=== PATIENT | male | born 2000 | race Caucasian/White ===

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

== ENCOUNTER 2022-01-19 04:48 | Emergency (ER) | payer MEDICAID ==
[~2022-01-19] VITALS: Ht 172.7 cm; Wt 65.9 kg
[~2022-01-19 04:48] MED LIST changes: +ATARAX 10MG10 MG/TAB PO; +LATUDA60 MG PO; +LEVEMIR100 U/ML SQ; +NOVOLOG 100U100 U/M1 SQ; +NOVOLOG FLEX100 U/ML SQ
[2022-01-19 06:13] VITALS: BP 124/73; PULSE 116; TEMP 98.5
[2022-01-19] MEDS ORDERED: PROAIR HFA0.09 MG/AC IH (06:17)
== END 2022-01-19 06:26 | disposition home or self-care (01) ==
LOC: COL.ER 04:48
DX: R05.9 Cough, unspecified (principal)
CPT/HCPCS: J7120

== ENCOUNTER 2022-04-27 12:25 | Inpatient (IN) | payer MEDICAID ==
[~2022-04-27] VITALS: Ht 172.7 cm; Wt 63.5 kg
[2022-04-27] VITALS (415 sets, daily range): BP systolic 108–117; BP diastolic 61–71; PULSE 76–109; O2SAT 94–100
[~2022-04-27 12:25] MED LIST changes: +PROAIR HFA0.09 MG/AC IH
[2022-04-27 13:28] LABS: BASO % 0.9 % (0.0-2.0); EOS # 0.2 K/mm3 (0.0-0.7); EOS % 3.5 % (0.0-4.0); GRAN # 3.3 K/mm3 (1.4-6.5); GRAN % 71.8 % (42.2-75.2); HEMATOCRIT 42.2 % (36.0-47.0); HEMOGLOBIN 15.1 g/dl (12.5-16.1); LYMPH # 0.9 K/mm3 (1.2-3.4); MEAN CELL VOLUME 98 fl (80.0-95.0); MEAN CORPUSCULAR HEMOGLOBIN 35 pg (26-32); MEAN CORPUSCULAR HGB CONC 36 g/dl (33.0-37.0); MEAN PLATELET VOLUME 9.2 fl (7.4-10.4); MONO # 0.2 K/mm3 (0.1-0.6); MONO % 4.6 % (1.7-9.3); PLATELET COUNT 247 K/mm3 (130-400); RED BLOOD COUNT 4.33 M/mm3 (4.20-5.60); REDCELL DISTRIBUTION WIDTH-CV 11.2 % (11.5-14.5)
[2022-04-27 13:45] LABS: ALANINE AMINOTRANSFERASE 32 U/L (0-55); ALBUMIN 3.9 gm/dL (3.5-5.0); ALKALINE PHOSPHATASE 70 U/L (40-150); ANION GAP 18 mmol/L (7-16); AST,SGOT 30 U/L (5-34); BILIRUBIN,TOTAL 0.8 mg/dL (0.2-1.2); BLOOD UREA NITROGEN 13 mg/dL (9-21); CALCIUM 9.1 mg/dL (8.4-10.2); CARBON DIOXIDE 16 mmol/L (22-29); CHLORIDE 102 mmol/L (98-107); CREATININE, serum 1.03 mg/dL (0.72-1.25); POTASSIUM 4.9 mmol/L (3.5-4.5); SODIUM 136 mmol/L (136-145); TOTAL PROTEIN 6.7 gm/dL (6.2-8.1)
[2022-04-27 13:50] LABS: ACETONE,SERUM SMALL
[2022-04-27 13:58] LABS: GLUCOSE 607 mg/dL (70-99)
[2022-04-27 14:21] LABS: LIPASE 171 U/L (8-78)
[2022-04-27 15:31] LABS: BLOOD UREA NITROGEN 11 mg/dL (9-21); CHLORIDE 109 mmol/L (98-107); CREATININE, serum 0.91 mg/dL (0.72-1.25); GLUCOSE 362 mg/dL (70-99); POTASSIUM 5.1 mmol/L (3.5-4.5); SODIUM 140 mmol/L (136-145)
[2022-04-27 15:32] LABS: ANION GAP 17 mmol/L (7-16); CALCIUM 8.3 mg/dL (8.4-10.2); CARBON DIOXIDE 14 mmol/L (22-29)
[2022-04-27 15:39] LABS: ACETONE,SERUM SMALL
--- NOTE | 2022-04-27 16:45 | NUR ---
PT ARRIVED FROM ED FROM DKA. PT GOES BY "FLORINDA" AND IDENTIFIES FEMALE. PT TRANSFERED TO BED. PT PLACED ON TELE AND VSS. PT'S BG CHECKED. INSULIN DRIP AND IVF STARTED PT ORIENTED TO ROOM AND FLOOR. PT HAS CALL LIGHT AND INSTRUCTED TO CALL WITH ALL NEEDS AND NOT TO GET OUT OF BED. 1700-CLARIFIED WITH REGARDING DIET. STATES OK FOR CARB CONTROLLED DIET EVEN WITH INCREASE IN BG.
[2022-04-27 18:21] LABS: COLLECTION METHOD CLEAN CATCH
[2022-04-27 18:32] LABS: URINE APPEARANCE Clear (CLEAR/HAZY); URINE COLOR Yellow (YELLOW); URINE GLUCOSE 2+ (NEGATIVE); URINE KETONE 3+ (NEGATIVE)
[2022-04-27 18:33] LABS: URINE BLOOD Negative (NEGATIVE); URINE NITRATE Negative (NEGATIVE); URINE PROTEIN(semi-quant) Negative (NEGATIVE); URINE UROBILINOGEN 0.2 E.U/dL (0.2-1.0)
[2022-04-27 18:35] LABS: MUCOUS Present (NOT PRESENT); SQUAMOUS EPITHELIAL None Seen /hpf (0-10); URINE BACTERIA None Seen /hpf (NONE SEEN); URINE RBC None Seen /hpf (0-2)
[2022-04-27 19:44] LABS: CALCIUM 8.7 mg/dL (8.4-10.2)
[2022-04-27 19:56] LABS: POTASSIUM 4.4 mmol/L (3.5-4.5)
[2022-04-27 22:03] LABS: CALCIUM 8.6 mg/dL (8.4-10.2); CREATININE, serum 0.94 mg/dL (0.72-1.25); POTASSIUM 4.1 mmol/L (3.5-4.5)
[2022-04-27 23:29] LABS: CALCIUM 8.6 mg/dL (8.4-10.2); CREATININE, serum 0.82 mg/dL (0.72-1.25); POTASSIUM 4.4 mmol/L (3.5-4.5)
[2022-04-28] VITALS (724 sets, daily range): BP systolic 109–135; BP diastolic 67–83; PULSE 63–124; TEMP 97.5–98.7; O2SAT 92–100
[2022-04-28 01:39] LABS: CALCIUM 8.5 mg/dL (8.4-10.2); CREATININE, serum 0.75 mg/dL (0.72-1.25); POTASSIUM 3.8 mmol/L (3.5-4.5)
[2022-04-28 06:02] LABS: BASO # 0.1 K/mm3 (0.0-0.2); BASO % 1.4 % (0.0-2.0); EOS # 0.6 K/mm3 (0.0-0.7); EOS % 10.1 % (0.0-4.0); GRAN # 1.9 K/mm3 (1.4-6.5); GRAN % 32.8 % (42.2-75.2); HEMOGLOBIN 14.3 g/dl (12.5-16.1); LYMPH # 2.8 K/mm3 (1.2-3.4); MEAN CELL VOLUME 98 fl (80.0-95.0); MEAN CORPUSCULAR HEMOGLOBIN 34 pg (26-32); MEAN CORPUSCULAR HGB CONC 35 g/dl (33.0-37.0); MEAN PLATELET VOLUME 9.2 fl (7.4-10.4); MONO # 0.4 K/mm3 (0.1-0.6); MONO % 6.3 % (1.7-9.3); PLATELET COUNT 244 K/mm3 (130-400); RED BLOOD COUNT 4.19 M/mm3 (4.20-5.60); REDCELL DISTRIBUTION WIDTH-CV 11.4 % (11.5-14.5)
[2022-04-28 06:23] LABS: ALBUMIN 3.2 gm/dL (3.5-5.0); CALCIUM 8.6 mg/dL (8.4-10.2); CREATININE, serum 0.75 mg/dL (0.72-1.25); MAGNESIUM 1.7 mg/dL (1.6-2.6); PHOSPHOROUS 3.9 mg/dL (2.3-4.7); POTASSIUM 3.8 mmol/L (3.5-4.5)
[2022-04-28] MEDS ORDERED: NOVOLOG 100U100 U/M1 SQ (09:45)
--- NOTE | 2022-04-28 16:57 | NUR ---
river transportation worker met with patient to discuss discharge planning. Patient states that she lives with her sister, Quyen and will return there upon discharge. Patient states that she will need to retrieve her belongings from [facility] prior to returning to sister's. Patient states that she is currently employed and has [employer] that coverst the cost of her prescriptions. Patient states she does not have advance directives and worker provided information and will provide copies for patient to review. Discharge plan is to return to her sister's home where she resides.
[2022-04-28] MEDS ORDERED: LEVEMIR FLEX100 U/ML SQ (23:13)
[2022-04-28] MEDS ORDERED: GLUCAGEN1 MG IM (23:14)
[2022-04-29] VITALS: BP 143/84; PULSE 75; TEMP 98.1
[2022-04-29 04:00] VITALS: BP 133/85; PULSE 73; TEMP 97.9
[2022-04-29 05:45] LABS: BASO # 0.1 K/mm3 (0.0-0.2); BASO % 1.2 % (0.0-2.0); EOS # 0.5 K/mm3 (0.0-0.7); EOS % 9.8 % (0.0-4.0); GRAN # 1.8 K/mm3 (1.4-6.5); GRAN % 33.9 % (42.2-75.2); HEMOGLOBIN 14.1 g/dl (12.5-16.1); LYMPH # 2.5 K/mm3 (1.2-3.4); LYMPH % 47.2 % (20.0-51.0); MEAN CELL VOLUME 100 fl (80.0-95.0); MEAN CORPUSCULAR HEMOGLOBIN 35 pg (26-32); MEAN CORPUSCULAR HGB CONC 35 g/dl (33.0-37.0); MONO # 0.4 K/mm3 (0.1-0.6); MONO % 7.7 % (1.7-9.3); PLATELET COUNT 252 K/mm3 (130-400); RED BLOOD COUNT 4.02 M/mm3 (4.20-5.60); REDCELL DISTRIBUTION WIDTH-CV 11.1 % (11.5-14.5)
[2022-04-29 06:00] LABS: ALBUMIN 3.5 gm/dL (3.5-5.0); CREATININE, serum 0.75 mg/dL (0.72-1.25); MAGNESIUM 1.9 mg/dL (1.6-2.6); PHOSPHOROUS 4.5 mg/dL (2.3-4.7); POTASSIUM 3.4 mmol/L (3.5-4.5)
[2022-04-29 08:00] VITALS: BP 131/82; PULSE 65; TEMP 98
--- NOTE | 2022-04-29 11:02 | NUR ---
PT D/C'D TO HOME. GIVEN DISCHARGE INSTRUCTIONS AND VERBALIZED UNDERSTANDING. PLANS TO STOP AT [facility] TO [facility] AND TOUCH BASE WITH THEM. THEN PLANS TO GO TO SISTERS TO STAY.
--- NOTE | 2022-04-29 17:29 | NUR ---
sprinkler worker met with patient and provided her with advance directives information.
== END 2022-04-29 11:02 | disposition home or self-care (01) | DRG 639 ==
LOC: COL.ER 12:25 → ICU 15:35 → COL.ER 15:35 → ICU 15:35 → EDBEDREQ 16:23 → ICU 04-29 11:02
PROVIDERS: Emergency Medicine; ADMIT Internal Medicine
DX: E10.10 Type 1 diabetes mellitus with ketoacidosis without coma (principal); F31.9 Bipolar disorder, unspecified; F44.81 Dissociative identity disorder; F41.9 Anxiety disorder, unspecified; E87.5 Hyperkalemia; F12.90 Cannabis use, unspecified, uncomplicated; Z91.51 Personal history of suicidal behavior; Z79.4 Long term (current) use of insulin; Z88.8 Allergy status to other drugs, medicaments and biological substances; Z91.048 Other nonmedicinal substance allergy status
CPT/HCPCS: J1815; J2405; J3480; J7030

== ENCOUNTER 2023-12-23 10:17 | Emergency (ER) | payer MEDICAID ==
[~2023-12-23] VITALS: Ht 172.7 cm; Wt 59.1 kg
[~2023-12-23 10:17] MED LIST changes: +EFFER-K20 MEQ PO; +GLUCAGEN1 MG IM; +LEVEMIR FLEX100 U/ML SQ; +NOVLOG SQ
[2023-12-23 10:28] VITALS: TEMP 97.8
[2023-12-23 12:27] LABS: COLLECTION METHOD CLEAN CATCH
[2023-12-23 12:34] LABS: URINE APPEARANCE CLEAR (CLEAR/HAZY); URINE BLOOD NEGATIVE (NEGATIVE); URINE COLOR YELLOW (YELLOW); URINE GLUCOSE 3+ (NEGATIVE); URINE KETONE 4+ (NEGATIVE); URINE NITRATE NEGATIVE (NEGATIVE); URINE PROTEIN(semi-quant) NEGATIVE (NEGATIVE); URINE UROBILINOGEN 0.2 E.U/dL (0.2-1.0)
[2023-12-23 14:23] VITALS: BP 118/63; PULSE 84
[2023-12-23] MEDS ORDERED: NS 1,000 ML IV SCH (18:46)
== END 2023-12-23 14:23 | disposition home or self-care (01) ==
LOC: COL.ER 10:17
PROVIDERS: Nurse Practitioner
DX: R10.12 Left upper quadrant pain (principal); E10.9 Type 1 diabetes mellitus without complications
CPT/HCPCS: J7030